=== PATIENT | male | born 1945 | race Caucasian/White ===

== ENCOUNTER 2017-02-21 23:49 | Emergency (ER) | payer MEDICARE ==
[~2017-02-21] VITALS: Ht 177.8 cm; Wt 65.8 kg
[~2017-02-21 23:49] MED LIST: LITHIUM CARBON300 M1 PO; MS CONTIN30 MG PO; OXYCODONE5 MG PO; PERCOCET 325 MG1 TA2 PO; SEROQUEL XR300 MG PO
== END 2017-02-22 00:23 | disposition home or self-care (01) ==
LOC: ED 23:49
DX: S40.261A Insect bite (nonvenomous) of right shoulder, initial encounter (principal); F17.200 Nicotine dependence, unspecified, uncomplicated; Z90.49 Acquired absence of other specified parts of digestive tract; W57.XXXA Bitten or stung by nonvenomous insect and other nonvenomous arthropods, initial encounter; Y93.89 Activity, other specified; Y92.9 Unspecified place or not applicable; Y99.9 Unspecified external cause status

== ENCOUNTER → 2017-03-29 | Day surgery (SDC) | payer MEDICARE ==
[~2017-03-29] VITALS: Ht 177.8 cm; Wt 68.0 kg
--- NOTE | ~2017-03-29 | WILSON ---
[place], [place] CATARACT EXTRACTION NAME: FRANTZ OCHOA [facility] #: [id number] UNIT #: [id number] ROOM: DOCTOR: TIM CID MD DATE: 03/29/17 PREOPERATIVE DIAGNOSIS: Cataract, right eye. POSTOPERATIVE DIAGNOSIS: Cataract, right eye. OPERATION: Extracapsular cataract extraction by phacoemulsification with posterior chamber intraocular lens implantation, right eye. ANESTHESIA: Monitored standby. OPERATIVE FINDINGS AND PROCEDURE: 2% Xylocaine topical anesthetic gel was applied to the eye in the preop area. The patient was taken to the operating room and prepped and draped in the standard fashion for sterile intraocular surgery. A time out procedure was performed verifying correct patient, correct site and corrects lens with Adamaris Cid M.D. The operating microscope was swung into position and the lid speculum was inserted. Using a paracentesis blade, a paracentesis was made through clear cornea. Viscoelastic was used to fill the anterior chamber. Using a metal keratome a 2.4 mm self-sealing clear corneal cataract incision was made temporally at the limbus. Using a pre-bent 25 gauge cystotome needle, a standard continuous curvilinear capsulorrhexis was performed. The anterior capsule was removed with forceps. The lens nucleus was hydrodissected and phacoemulsified in the posterior chamber. Cortical material was removed with the irrigation aspiration hand piece and the posterior capsule was then polished with a curet under irrigation. The posterior chamber and capsular bag were filled with viscoelastic. A posterior chamber intraocular lens manufactured by: [employer], Model #[id number], and 12.0 diopters in strength was then inserted into the posterior chamber and within the capsular bag using the lens cartridge and injector system. Viscoelastic was removed using the irrigation aspiration handpiece. The anterior chamber was filled with balanced salt solution through the paracentesis. Both the paracentesis site and cataract incisions were hydrated with BSS and verified to be water-tight and self-sealing. Cefuroxime 1 mg/0.1 mL was injected into the anterior chamber through the paracentesis site. The incision checked to be water-tight using a Weck-farooq sponge. The integrity of the cataract wound and ocular tension were checked. Lid speculum and drapes were removed. One drop of Ocuflox was applied to the eye. The patient was transferred from the operating room to the recovery room in satisfactory condition. TIM BAUTISTA MD CM:OPRECORD:CATARACT EXTRACTION 1208 1208 TIM CID MD 03/30/17 1221 RICH ESTEVES MIS.R
[2017-03-29 12:00] VITALS: BP 144/68
[2017-03-29 13:17] VITALS: BP 144/80
[2017-03-29 13:32] VITALS: BP 146/74
[2017-03-29 13:47] VITALS: BP 146/74
== END | disposition home or self-care (01) ==
LOC: SDC 03-24 10:15
DX: H26.9 Unspecified cataract (principal); Z87.898 Personal history of other specified conditions; F17.210 Nicotine dependence, cigarettes, uncomplicated; Z90.49 Acquired absence of other specified parts of digestive tract; Z98.890 Other specified postprocedural states; Z80.9 Family history of malignant neoplasm, unspecified

== ENCOUNTER → 2017-05-03 | Day surgery (SDC) | payer MEDICARE ==
[~2017-05-03] VITALS: Ht 177.8 cm; Wt 68.0 kg
--- NOTE | ~2017-05-03 | O ---
[place], [place] O[facility]ATIVE [id number] #: [id number] ROOM: DOCTOR: TIM HERNANDEZ MD BIRTHDATE: [birth year] DOS: 05/03/2017 PREOPERATIVE DIAGNOSIS: Cataract, left eye. POSTOPERATIVE DIAGNOSIS: Cataract, left eye. OPERATION: Extracapsular cataract extraction by phacoemulsification with posterior chamber intraocular lens implantation, left eye. ANESTHESIA: Monitored standby. OPERATIVE FINDINGS AND PROCEDURE: 2% Xylocaine topical anesthetic gel was applied to the eye in the preop area. The patient was taken to the operating room and prepped and draped in the standard fashion for sterile intraocular surgery. A time out procedure was performed verifying correct patient, correct site and corrects lens with Adamaris Hernandez M.D. The operating microscope was swung into position and the lid speculum was inserted. Using a Lashanda paracentesis blade, a paracentesis was made through clear cornea. Viscoelastic was used to fill the anterior chamber. Using a metal keratome a 2.4 mm self-sealing clear corneal cataract incision was made temporally at the limbus. Using a pre-bent 25 gauge cystotome needle, a standard continuous curvilinear capsulorrhexis was performed. The anterior capsule was removed with forceps. The lens nucleus was hydrodissected and phacoemulsified in the posterior chamber. Cortical material was removed with the irrigation aspiration hand piece and the posterior capsule was then polished with a curet under irrigation. The posterior chamber and capsular bag were filled with viscoelastic. A posterior chamber intraocular lens manufactured by: [employer], Model #[id number], and 11.5 diopters in strength were then inserted into the posterior chamber and within the capsular bag using the lens cartridge and injector system. Viscoelastic was removed using the irrigation aspiration handpiece. The anterior chamber was filled with balanced salt solution through the paracentesis. Both the paracentesis site and cataract incisions were hydrated with BSS and verified to be water-tight and self-sealing. Cefuroxime 1 mg/0.1 mL was injected into the anterior chamber through the paracentesis site. The incision checked to be water-tight using a Weck-Jackie sponge. The integrity of the cataract wound and ocular tension were checked. Lid speculum and drapes were removed. The patient was transferred from the operating room to the recovery room in satisfactory condition. [place], [place] OPERATIVE NOTE NAME: FRANTZ OCHOA UNIT #: [id number] ROOM: DOCTOR: TIM HERNANDEZ MD BIRTHDATE: [birth year] TIM HERNANDEZ MD CM:OPRECORD:OPERATIVE NOTE 1319 1408 TIM HERNANDEZ MD 05/03/17 1409 interface
[2017-05-03 11:50] VITALS: BP 102/69
[2017-05-03 13:16] VITALS: BP 117/73
[2017-05-03 13:31] VITALS: BP 117/73
[2017-05-03 13:47] VITALS: BP 121/72
== END | disposition home or self-care (01) ==
LOC: SDC 04-28 14:00
DX: H26.9 Unspecified cataract (principal); M19.90 Unspecified osteoarthritis, unspecified site; Z90.49 Acquired absence of other specified parts of digestive tract; Z98.890 Other specified postprocedural states; Z80.9 Family history of malignant neoplasm, unspecified; F17.210 Nicotine dependence, cigarettes, uncomplicated

== ENCOUNTER 2017-05-13 19:27 | Emergency (ER) | payer MEDICARE ==
[~2017-05-13] VITALS: Ht 177.8 cm; Wt 65.8 kg
--- NOTE | ~2017-05-13 | EKG ---
[place], [place] ELECTROCARDIOGRAM REPORT NAME: FRANTZ OCHOA UNIT #: [id number] ROOM: DOCTOR: RYAN VILLEGAS MD BIRTHDATE: [birth year] DOS: 05/13/2017 TIME: 2002 hours. Normal sinus rhythm at 86 beats per minute. The tracing is normal. No previous tracing is available for comparison. RYAN VILLEGAS MD CM:EKGRPT:ELECTROCARDIOGRAM REPORT 20 RYAN VILLEGAS MD
[2017-05-13] MEDS ORDERED: KEFLEX500 M1 PO (19:44)
[2017-05-13] MEDS ORDERED: NAPROSYN500 MG PO (19:44)
== END 2017-05-13 21:35 | disposition home or self-care (01) ==
LOC: ED 19:27
DX: S46.212A Strain of muscle, fascia and tendon of other parts of biceps, left arm, initial encounter (principal); M25.512 Pain in left shoulder; R03.0 Elevated blood-pressure reading, without diagnosis of hypertension; M79.644 Pain in right finger(s); F17.200 Nicotine dependence, unspecified, uncomplicated; X58.XXXA Exposure to other specified factors, initial encounter; Y93.89 Activity, other specified; Y92.89 Other specified places as the place of occurrence of the external cause; Y99.8 Other external cause status

== ENCOUNTER → 2017-10-17 | Outpatient (CLI) | payer OTHER ==
[~2017-10-17] MED LIST changes: +KEFLEX500 M1 PO; +NAPROSYN500 MG PO
== END ==
LOC: US 10-16 07:30
DX: Z13.6 Encounter for screening for cardiovascular disorders (principal)

== ENCOUNTER 2018-01-10 13:59 | Emergency (ER) | payer OTHER, MEDICARE ==
[~2018-01-10] VITALS: Ht 177.8 cm; Wt 70.3 kg
[2018-01-10] MEDS ORDERED: ZITHROMAX250 MG PO (15:36)
== END 2018-01-10 15:44 | disposition home or self-care (01) ==
LOC: ED 13:59
DX: J40 Bronchitis, not specified as acute or chronic (principal); F17.200 Nicotine dependence, unspecified, uncomplicated

== ENCOUNTER 2018-06-09 21:58 | Inpatient (IN) | payer OTHER, MEDICARE ==
[~2018-06-09] VITALS: Ht 177.8 cm; Wt 67.2 kg
--- NOTE | ~2018-06-09 | CON ---
[place], [place] REPORT OF CONSULTATION NAME: FRANTZ OCHOA UNIT #: [id number] ROOM: [place] [address] DOCTOR: MANAV TRAVIS,LESTER BIRTHDATE: [birth year] DOS: ADDENDUM CHIEF COMPLAINT: "I have been on a good whisky binge for 3 weeks." LESTER EM MD CM:CONSTR:REPORT OF CONSULTATION 1000 07/05/18 2240 interface
--- NOTE | ~2018-06-09 | CON ---
[place], [place] REPORT OF CONSULTATION NAME: FRANTZ OCHOA UNIT #: [id number] ROOM: [place] [address] DOCTOR: LESTER EM MD BIRTHDATE: [birth year] DOS: 06/10/2018 CHIEF COMPLAINT: "I have been on a good whisky binge for 3 weeks." HISTORY OF PRESENT ILLNESS: This is a 72-year-old white male admitted to ICU after presenting to the Emergency Room complaining of significant alcohol abuse and depression. The patient reports that he has been drinking hard liquor for the last 3 weeks nonstop, oftentimes waking up at 2 or 3 in the morning to down several glasses of whisky. The patient reports ongoing depression for many years and has seen the [place] psychiatrist for some time. Most recently, he remembers being prescribed Seroquel at bedtime, but states that the dose was too high for him. During this period of time, he has noted multiple neurovegetative symptoms that includes poor sleep with difficulty falling asleep, sleep continuity disturbance, special education tutor awakening, anergia, anhedonia, hopeless, helpless feelings, crying spells and inability to cope. He also has an extremely poor appetite and has lost over 10 pounds in the last 6 months. Today, he said he has not eaten for 6 days and the first meal he had was the meal he had in ICU. He is open to making medication changes. MENTAL STATUS: He is alert and oriented. Mood does seem to be overwhelmingly depressed. Affect is flat, blunted and constricted. He denies suicidal thoughts currently. There is no manny, hypomania or psychosis. Memory for the most part is intact. DIAGNOSIS: Major depression, recurrent, severe and alcohol dependence. PLAN: I will start him on Remeron 15 mg at bedtime along with low-dose Seroquel 25 mg. I did give him the option for further stabilization on the Behavioral Health Unit if he has chose to do so. If not, he may return home with scripts for these medications. LESTER EM MD CM:CONSTR:REPORT OF CONSULTATION 0959 07/05/18 9350 interface
--- NOTE | ~2018-06-09 | EKG ---
[place], [place] ELECTROCARDIOGRAM REPORT NAME: FRANTZ OCHOA UNIT #: [id number] ROOM: [place] [address] DOCTOR: SHANICE DRAFT REPORT BIRTHDATE: [birth year] [facility] Test Date: 2018-06-11 Test Time: 07:18:46 Pat Name: FRANTZ OCHOA Department: Room: [place] [address] Gender: M Digital Director: RUBEN : 1945 Requested By: EMILY BHANDARI Order Number: [id number] Reading MD: Ashly Linares MD Measurements Intervals [place] Rate: 145 P: [place]: QRS: 7 QRSD: 90 T: 129 QT: 312 QTc: 485 Interpretive Statements Atrial fibrillation Repolarization abnormality, prob rate related No previous ECG available for comparison Electronically Signed On 06-11-2018 9:36:59 PDT by Ashly Linares MD CM:EKGRPT:ELECTROCARDIOGRAM REPORT EMILY KNAPP DRAFT REPORT EMILY BHANDARI DO
[~2018-06-09 21:58] MED LIST changes: +ZITHROMAX250 MG PO
[2018-06-09 22:03] VITALS: BP 153/92
[2018-06-09 22:47] LABS: BASO % 0.3 % (0.0-1.0); EOS # 0.1 10*3/uL (0.0-0.4); EOS % 1.4 % (1.0-4.0); HEMOGLOBIN 15.2 g/dl (14.0-18.0); LYMPH # 2.3 10*3/uL (1.3-4.4); LYMPH % 38.7 % (27.0-41.0); MEAN CELL VOLUME 87.7 fl (80.0-94.0); MEAN CORPUSCULAR HGB 31.7 pg (27.0-31.0); MEAN CORPUSCULAR HGB CONC 36.2 g/dl (33.0-37.0); MEAN PLATELET VOLUME 8.8 fl (9.6-12.3); MONO # 0.3 10*3/uL (0.1-1.0); MONO % 5.1 % (3.0-9.0); NEUT # 3.2 10*3/uL (2.3-7.9); NEUT % 53.6 % (47.0-73.0); PLATELET COUNT AUTOMATED 206 10*3/uL (130-400); RED BLOOD COUNT 4.79 10*6/uL (4.50-5.90); RED CELL DISTRI WIDTH 13.5 % (0-14.5); WHITE BLOOD COUNT 5.9 10*3/uL (4.8-10.8)
[2018-06-09 22:58] LABS: BUN 18 mg/dl (7-24); CHLORIDE 104 mmol/L (98-107); CREATININE 0.58 mg/dL (0.70-1.30); POTASSIUM 3.5 mmol/L (3.5-5.1); SODIUM 141 mmol/L (136-145)
[2018-06-09 22:59] LABS: ACETAMINOPHEN (TYLENOL) < 2.0 ug/ml (10-30)
[2018-06-10] VITALS (7 sets, daily range): BP systolic 133–167; BP diastolic 81–96
[2018-06-10 00:02] LABS: BILIRUBIN NEGATIVE (NEGATIVE); BLOOD 1+ (NEGATIVE); CLARITY SL CLOUDY (CLEAR); COLOR YELLOW (YELLOW); GLUCOSE NEGATIVE (NEGATIVE); KETONE 1+ (NEGATIVE); LEUKO ESTERASE NEGATIVE (NEGATIVE); NITRITE NEGATIVE (NEGATIVE); UROBILINOGEN 0.2 E.U./dl (0.2-1.0)
[2018-06-10 00:16] LABS: URINE AMPHETAMINES < 1000 (1000ng/ml); URINE BARBITURATES < 200 (200ng/ml); URINE BENZODIAZEPINES > 200 (200ng/ml); URINE CANNABINOIDS (THC) < 50 (50ng/ml); URINE METHADONE < 300 (300ng/ml); URINE OPIATES < 300 (300ng/ml)
[2018-06-10 00:17] LABS: URINE COCAINE < 300 (300ng/ml); URINE PHENCYCLIDINE < 25 (25ng/ml)
[2018-06-10 01:39] LABS: BASO % 0.5 % (0.0-1.0); EOS # 0.1 10*3/uL (0.0-0.4); EOS % 0.9 % (1.0-4.0); HEMATOCRIT 39.7 % (42.0-52.0); HEMOGLOBIN 14.3 g/dl (14.0-18.0); LYMPH # 1.8 10*3/uL (1.3-4.4); LYMPH % 27.4 % (27.0-41.0); MEAN CELL VOLUME 88.8 fl (80.0-94.0); MEAN PLATELET VOLUME 8.6 fl (9.6-12.3); MONO # 0.3 10*3/uL (0.1-1.0); MONO % 4.4 % (3.0-9.0); NEUT # 4.3 10*3/uL (2.3-7.9); PLATELET COUNT AUTOMATED 178 10*3/uL (130-400); RED BLOOD COUNT 4.47 10*6/uL (4.50-5.90); RED CELL DISTRI WIDTH 13.5 % (0-14.5); WHITE BLOOD COUNT 6.5 10*3/uL (4.8-10.8)
[2018-06-10 01:53] LABS: ALBUMIN 3.2 gm/dl (3.1-4.5); ALKALINE PHOSPHATASE 52 U/L (45-117); BUN 18 mg/dl (7-24); CHLORIDE 105 mmol/L (98-107); LIPASE 88 U/L (73-393); POTASSIUM 3.7 mmol/L (3.5-5.1); SGOT/AST 59 IU/L (3-35); SGPT/ALT 44 U/L (12-78); SODIUM 144 mmol/L (136-145); TOTAL PROTEIN 5.8 gm/dL (6.4-8.2)
[2018-06-10 16:30] LABS: ALBUMIN 3.2 gm/dl (3.1-4.5); ALKALINE PHOSPHATASE 56 U/L (45-117); BUN 24 mg/dl (7-24); CHLORIDE 108 mmol/L (98-107); CREATININE 0.71 mg/dL (0.70-1.30); POTASSIUM 3.7 mmol/L (3.5-5.1); SGOT/AST 57 IU/L (3-35); SGPT/ALT 40 U/L (12-78); SODIUM 142 mmol/L (136-145); TOTAL PROTEIN 5.6 gm/dL (6.4-8.2)
[2018-06-11] VITALS: BP 149/85
[2018-06-11 04:00] VITALS: BP 132/78
[2018-06-11 08:00] VITALS: BP 124/82
[2018-06-11 12:00] VITALS: BP 90/59
[2018-06-11 16:00] VITALS: BP 124/73
== END 2018-06-11 18:37 | disposition left against medical advice (07) | DRG 309 ==
LOC: ED 21:58 → EDHOLD 23:49 → ICCU 23:49
PROVIDERS: Internal Medicine; Nurse Practitioner Family
DX: I48.0 Paroxysmal atrial fibrillation (principal); R45.851 Suicidal ideations; F33.2 Major depressive disorder, recurrent severe without psychotic features; R10.13 Epigastric pain; R74.0 Nonspecific elevation of levels of transaminase and lactic acid dehydrogenase [LDH]; J43.9 Emphysema, unspecified; F11.10 Opioid abuse, uncomplicated; Z60.2 Problems related to living alone; H54.61 Unqualified visual loss, right eye, normal vision left eye; Z96.649 Presence of unspecified artificial hip joint; R00.0 Tachycardia, unspecified; Z53.21 Procedure and treatment not carried out due to patient leaving prior to being seen by health care provider; F10.220 Alcohol dependence with intoxication, uncomplicated; G89.29 Other chronic pain; M25.552 Pain in left hip; Z79.899 Other long term (current) drug therapy; Z90.49 Acquired absence of other specified parts of digestive tract; Z90.89 Acquired absence of other organs; Z98.42 Cataract extraction status, left eye; Z98.41 Cataract extraction status, right eye; Z81.8 Family history of other mental and behavioral disorders; Z80.8 Family history of malignant neoplasm of other organs or systems; Z87.891 Personal history of nicotine dependence; Z82.3 Family history of stroke; Z86.73 Personal history of transient ischemic attack (TIA), and cerebral infarction without residual deficits

== ENCOUNTER 2019-08-05 04:48 | Emergency (ER) | payer MEDICARE ==
[~2019-08-05] VITALS: Ht 177.8 cm; Wt 70.3 kg
[2019-08-05 05:34] LABS: BASO % 0.4 % (0.0-1.0); EOS # 0.1 10*3/uL (0.0-0.4); EOS % 1.4 % (1.0-4.0); HEMATOCRIT 35.9 % (42.0-52.0); HEMOGLOBIN 12.4 g/dl (14.0-18.0); LYMPH # 1.2 10*3/uL (1.3-4.4); LYMPH % 23.2 % (27.0-41.0); MEAN CELL VOLUME 91.3 fl (80.0-94.0); MEAN CORPUSCULAR HGB 31.6 pg (27.0-31.0); MEAN CORPUSCULAR HGB CONC 34.5 g/dl (33.0-37.0); MEAN PLATELET VOLUME 9.5 fl (9.6-12.3); MONO # 0.6 10*3/uL (0.1-1.0); MONO % 12.4 % (3.0-9.0); NEUT % 60.4 % (47.0-73.0); PLATELET COUNT AUTOMATED 161 10*3/uL (130-400); RED BLOOD COUNT 3.93 10*6/uL (4.50-5.90); RED CELL DISTRI WIDTH 13.5 % (0-14.5)
[2019-08-05 05:48] LABS: ALBUMIN 3.2 gm/dl (3.1-4.5); ALKALINE PHOSPHATASE 99 U/L (45-117); BUN 23 mg/dl (7-24); CHLORIDE 108 mmol/L (98-107); CREATININE 0.71 mg/dL (0.70-1.30); POTASSIUM 3.8 mmol/L (3.5-5.1); SGOT/AST 23 IU/L (3-35); SGPT/ALT 28 U/L (12-78); SODIUM 139 mmol/L (136-145); TOTAL PROTEIN 6.5 gm/dL (6.4-8.2)
[2019-08-05] MEDS ORDERED: NORCO 5-325 TA1 EACH PO (08:15)
[2019-08-05] MEDS ORDERED: CLINDAMYCIN HC300 MG PO (08:15)
== END 2019-08-05 08:22 | disposition home or self-care (01) ==
LOC: ED 04:48
PROVIDERS: Emergency Medicine
DX: K04.7 Periapical abscess without sinus (principal); I48.91 Unspecified atrial fibrillation; Z87.891 Personal history of nicotine dependence

== ENCOUNTER 2020-05-28 02:32 | Inpatient (IN) | payer MEDICARE, OTHER ==
[~2020-05-28] VITALS: Ht 167.6 cm; Wt 67.1 kg
[~2020-05-28 02:32] MED LIST changes: +CLINDAMYCIN HC300 MG PO; +NORCO 5-325 TA1 EACH PO
[2020-05-28 02:57] VITALS: BP 134/66
--- NOTE | 2020-05-28 02:57 | NUR ---
FRANTZ OCHOA a 74 year old M admitted via wheel chair from the ADMITTING as a emergency 72 hr. hold admission. Arrived on unit at 0257. ALLERGIES: NKA. Vital signs are: 97.1-72-20 134/66. The client signed the following forms with stated understanding: Authorization For The Release of Medical Information, Clothing List, Consent to Voluntary Admission and Hospitalization, Consent and Release Forms/Receipt of Rights, Acknowledgement of Advance Directive Information, Behavioral Health Consent Form, and Informed Consent of Medications. Admitted under the services of Dr. MANAV TRAVIS,[facility]. A search was conducted and hazardous articles were removed. Client was oriented to the unit. ODILIA BRADFORD PATIENT CAME FROM HOME TO [facility]. PATIENT WITH TWO LARGE SCABS TO RIGHT LOWER EXTREMITY AND SCATTERED SMALL SCABS TO BILATERAL LOWER EXTREMITIES. PATIENT WITH SHEERING TO RIGHT INNER PINKY TOE. PATIENT REFUSED PHOTOS ON ADMISSION. PATIENT UNABLE TO PARTICIPATE IN ADMISSION SCREENINGS ON ADMISSION.
[2020-05-28] MEDS ORDERED: AMBIEN CR6.25 MG PO (03:00)
[2020-05-28] MEDS ORDERED: ZYPREXA5 M1 PO (03:01)
--- NOTE | 2020-05-28 03:11 | NUR ---
DR REARDON NOTIFIED OF ADMISSION
--- NOTE | 2020-05-28 05:37 | NUR ---
DR CAST ON UNIT TO SEE PATIENT
--- NOTE | 2020-05-28 06:26 | NUR ---
PATIENT SLEPT 3-4 HOURS OF UNINTERRUPTED SLEEP THROUGHOUT SHIFT. Q 15 MINUTE CHECKS MAINTAINED. 24 HR chart check completed.
[2020-05-28 06:55] VITALS: BP 134/66
--- NOTE | 2020-05-28 07:30 | NUR ---
SPACECRAFT SYSTEMS ENGINEER ALERTS THIS RN PT IS ASKING WHAT THE LAB WORK IS FOR BEFORE HE CONSENTS TO GETTING BLOOD DRAWN. THIS RN AND 2ND RN TO PT'S ROOM TO EXPLAIN ADMISSION LABS. PT VERY ANGRY/IRRITABLE AT THIS TIME, SPEAKING OVER STAFF'S ATTEMPTS TO PROVIDE EXPLANATIONS. PT STATES "YEAH, RIGHT. IT'S ALL ABOUT PADDING THE BILL. YOU KNOW THEY CHARGED ME $400 FOR ALCOHOL IN THE ER AND $469 FOR ONE TYLENOL TABLET. ALL YOU'RE DOING IS PADDING THE BILL". UNABLE TO REASON WITH PT AT THIS TIME. LABS REFUSED BY PT.
[2020-05-28 07:43] VITALS: BP 134/66
--- NOTE | 2020-05-28 08:15 | NUR ---
PT CONSENTED TO LAB DRAW AT THIS TIME. LABS OBTAINED.
--- NOTE | 2020-05-28 09:00 | NUR ---
Treatment Plan meeting was held this a.m. with Dr. Mccray, RN, AT, SAND MILL OPERATOR CORE SAND-S and Wrecking Crane Engine Operator. Plan for discharge Monday. Pt. will return home.
[2020-05-28 09:02] LABS: BASO % 0.4 % (0.0-1.0); EOS # 0.1 10*3/uL (0.0-0.4); EOS % 1.9 % (1.0-4.0); HEMATOCRIT 39.2 % (42.0-52.0); LYMPH # 1.7 10*3/uL (1.3-4.4); MEAN CORPUSCULAR HGB 30.2 pg (27.0-31.0); MEAN CORPUSCULAR HGB CONC 33.2 g/dl (33.0-37.0); MONO # 0.7 10*3/uL (0.1-1.0); MONO % 15.5 % (3.0-9.0); NEUT # 2.1 10*3/uL (2.3-7.9); NEUT % 45.1 % (47.0-73.0); PLATELET COUNT AUTOMATED 237 10*3/uL (130-400); RED BLOOD COUNT 4.31 10*6/uL (4.50-5.90); RED CELL DISTRI WIDTH 14.2 % (0-14.5); WHITE BLOOD COUNT 4.7 10*3/uL (4.8-10.8)
[2020-05-28 09:13] LABS: ALBUMIN 3.6 gm/dl (3.1-4.5); BUN 19 mg/dl (7-24); CHLORIDE 111 mmol/L (98-107); CHOLESTEROL 165 mg/dL (<200); CREATININE 1.19 mg/dL (0.70-1.30); HDL CHOLESTEROL 67 mg/dl (40-60); LDL CHOLESTEROL 83 mg/dL (9-159); POTASSIUM 3.2 mmol/L (3.5-5.1); SGOT/AST 23 IU/L (3-35); SGPT/ALT 32 U/L (12-78); SODIUM 144 mmol/L (136-145); TOTAL PROTEIN 6.7 gm/dL (6.4-8.2); TRIGLYCERIDES 77 mg/dl (<150); VLDL CHOLESTEROL 15 mg/dL (6-40)
[2020-05-28 09:20] LABS: ALKALINE PHOSPHATASE 81 U/L (45-117)
[2020-05-28 10:16] LABS: VITAMIN D, 25-HYDROXY 21.8 ng/mL (30-100)
--- NOTE | 2020-05-28 10:45 | NUR ---
CALL PLACED TO TO MAKE AWARE OF LOW POTASSIUM LEVEL, 3.4. VERBAL ORDER RECIEVED FOR KDUR 20MEQ NOW AND 2ND DOSE KDUR 20MEQ TO BE BE GIVEN TONIGHT WITH HS MEDS. READ BACK AND VERIFIED. WITNESSED BY 2ND RN FRANKY.DIEGO.
--- NOTE | 2020-05-28 11:30 | NUR ---
PT'S BED ALARM SOUNDING. THIS RN RESPONDS IMMEDIATELY. THIS RN ENTERS THE ROOM PT IS IN BATHROOM. PT STATES "I DON'T NEED THOSE DAMN ALARMS. I COULD RUN A 100 YARD DASH IN 15 SECONDS. I'M NOT GOING TO FALL". GAIT STEADY UPON ASSESSMENT. BED ALARM DISCONTINUED. PT STATES "I COULD DO WITHOUT THESE PULL-UPS. I NEED MY CLOTHES". PT CLOTHING HAD BEEN WASHED AND DRIED AND RETURNED TO PT AT THIS TIME. PT STATES HE WILL BE CONTACTING HIS LOCAL AREA NETWORK ADMINISTRATOR TO GET HIM OUT OF THIS HOSPITAL SOON POSSIBLE.
--- NOTE | 2020-05-28 11:35 | NUR ---
NOTIFIED [facility] [[email or web address]] DIRECTOR THAT PT WOULD LIKE TO SPEAK WITH A PT ADOVCATE RE: HIS BEING ADMITTED TO THE UNIT. PER DIRECTOR HE LEFT A VOICEMAIL FOR JOSE BROWN, PT ADVOCATE. 1147- PT ASKING TO CALL HIS STEAM METER READER NAZANIN GONZALES, PER DIRECTOR PT IS ALLOWED TO CALL, CALLED PLACED TO [facility] [employer] OFFICES, PT SPEAKING WITH A STAFF MEMBER IN THAT OFFICE AT THIS TIME. WILL CONTINUE TO MONITOR.
--- NOTE | 2020-05-28 12:00 | NUR ---
AM GROUP PT DID NOT ATTEND MORNING GROUP THERAPY. PT WAS IN BED RESTING.
--- NOTE | 2020-05-28 13:40 | NUR ---
SPOKE WITH DIRECTOR RE: PT ADVOCATE PER DIRECTOR HE HAS A CALL OUT AND WILL LET US KNOW WHEN HE HEARS BACK FROM THE ADOVOCATE.
--- NOTE | 2020-05-28 14:53 | NUR ---
SPOKE WITH DR HERNANDEZ RE: PT ALOCHOL USE AND DRINKING FOR 64 YEARS. PT STATED "SHELBY DRANK FOR 64 YEARS EVERYDAY." PT REFUSED TO ELABORATE ON AMOUNT CONSUMED EACH DAY. ADVISED THAT PT EXHIBITING TREMORS AND WAS MEDICATED WITH A PRN PO ATIVAN PER ORDERS. PER DR HERNANDEZ CONTINUE TO MONITOR AND IF IT GETS WORSE, CALL. [phone] DR GARCIA CALLED FOR UPDATE ON PT, UPDATE PROVIDED. PER DR GARCIA HE WILL START PT ON AN ATIVAN TAPER DOSE. NO FURTHER ORDERS AT THIS TIME.
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
--- NOTE | 2020-05-28 15:31 | NUR ---
Met with pt after pt saw Dr Mccray. Pt was irritable and demanding to go home. Attempted to explain 72 hr emergency hold and that Dr Mccray as well as all [facility] staff are wanting to work with pt as a team. Pt stated, "I appreciate you talking to me but I want to see the patient advocate right now." Left pt and informed charge histotechnologist of pt's request.
--- NOTE | 2020-05-28 15:35 | NUR ---
Met with pt this afternoon at his request. Pt was irritated but remained calm with this filing writer. Pt retold his earlier story of the men in the [facility]. Pt then stated, "I gotta get out of here today. I got to get home. Things are happening." Explained to pt that this would not be happening today. Pt escalated briefly and then calmed. Pt then asked to speak to the patient advocate and the hall porter. Explained to pt that this filing writer would inform RN of this. Discussed pt's requests and pt's mood with RN and land use planner. Calls were made in an attempt to locate patient advocate. Jamil Kevin RN, Director of [facility], currently meeting with pt.
--- NOTE | 2020-05-28 15:40 | NUR ---
PM GROUP PT WAS STANDING IN THE HALLWAY IN FRONT OF THE NURSES STATION AT THE START OF GROUP. PT WAS VERY AGITATED AND ARGUING WITH THE NURSE BEHIND THE DESK. PT WAS NOT INVITED INTO GROUP THERAPY DUE TO DISRUPTION TO THE GROUP MILIEU
--- NOTE | 2020-05-28 15:52 | NUR ---
[facility] , PER DIRECTOR PT IS ALLOWED TO MAKE THE CALL. SPOKE WITH DISPATCH, SHE STATED SHE WILL SEE IF THE OFFICER IS WORKING AND HAVE HIM RETURN THE CALL.
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
--- NOTE | 2020-05-28 16:08 | NUR ---
[facility] RETURNED CALL AND ADVISED THAT THE OFFICER THAT PINK SLIPPED THE PT IS OFF TODAY AND THE PT WAS PINK SLIPPED DUE TO HAVING HALLUCINATIONS OF SEEING 100S OF SOLIDERS IN HIS YARD TAKING OVER. PER THE OFFICER THEY FELT THAT THEY HAD NO OTHER CHOICE BUT TO PINK SLIP HIM BC HE WOULD NOT COME WILLINGLY AT THIS TIME. PER OFFICER IF THE PT STILL NEEDS TO SPEAK TO THAT OFFICER THAT WROTE THE PINK SLIP HE CAN CALL BACK TOMORROW.
--- NOTE | 2020-05-28 16:58 | NUR ---
PT COMES TO DINING ROOM FOR DINNER, STATES TO RN "YOU GIRLS OUGHT TO BE KIMI YOU'RE HERE IN THE HOSPITAL NOW WHEN I'M HERE". PT SMILES AND GOES ON TO STATE "BECAUSE WHEN I GET OUT OF HERE, ALL HELL IS GOING TO BREAK LOOSE. OH YEAH, I'LL BE SUING THIS PLACE BIG TIME BABY. THEY REALLY MESSED UP KEEPING ME HERE". PT SITTING DOWN EATING CALMLY AT THIS TIME.
--- NOTE | 2020-05-28 18:21 | NUR ---
UNABLE TO OBTAIN COVID NASAL SWAB THIS DATE D/T PT AGITATION AND PARANOIA.
[2020-05-28 20:00] VITALS: BP 158/91
--- NOTE | 2020-05-28 21:00 | NUR ---
Patient alert and oriented x4. Mood labile and anxious. Patient pacing hallway and looking into all the rooms especially other patients' rooms. Redirected patient about not looking into other patients' rooms. Patient said " I need to switch rooms. I can't sleep in a room with windows." Patient refused HS medications. Multiple attempts of redirecting ineffective. Patient continues to pace hallway and looking into rooms. Security making rounds and attempting to talk with patient. Will continue to monitor moods/behaviors at this time.
--- NOTE | 2020-05-28 21:19 | NUR ---
Patient continues to pace hallway,looking into rooms and increasing anxiety. Multiple attempts of redirection ineffective. All non-pharmacological interventions such as shutting blinds in patient's room and also in both quiet rooms but unsuccessful due to patient's paranoia. Medicated with Geodon IM prn as per doctor's order for increased agitation/anxiety. Will monitor moods/behaviors.
--- NOTE | 2020-05-29 05:50 | NUR ---
Patient slept approx. 3 hours of interrupted sleep throughout shift. Q 15 minute safety checks continued and maintained.
[2020-05-29 07:42] VITALS: BP 148/84
--- NOTE | 2020-05-29 08:37 | NUR ---
SPOKE WITH DR LOVELACE, RE: DC TODAY AROUND 10AM. PER HE WILL NOTIFY DR GARCIA.
[2020-05-29] MEDS ORDERED: MIRTAZAPINE15 M2 PO (08:42)
[2020-05-29] MEDS ORDERED: OLANZAPINE5 MG PO (08:42)
[2020-05-29] MEDS ORDERED: VITAMIN D3125 MC1 PO (08:42)
--- NOTE | 2020-05-29 09:00 | NUR ---
Treatment Plan meeting was held this a.m. with XAVIER Caro, RN, AT, JESSI-S and Fish Cake Maker. Plan for discharge today. Pt. is to return home. Pt. is connected with the [facility]. Will attempt to reach out to [place] to Arrange Follow up appointments.
--- NOTE | 2020-05-29 09:04 | NUR ---
DR GARCIA ON UNIT TO ASSESS PT; UPDATE PROVIDED TO
--- NOTE | 2020-05-29 09:05 | NUR ---
REFUSED ASSESSMENT BY DR GARCIA.
--- NOTE | 2020-05-29 09:17 | NUR ---
PATIENT DISCHARGED TO HOME. PATIENT ESCORTED OFF THE FLOOR BY [facility]HW AND SECURITY. PATIENT IS WALKING TWO BLOCKS TO HIS BROTHERS HOUSE. PATIENT IS ALERT AND ORIENTED, DENIES HALLUCINATIONS, DENIES DELUSIONS, DENIES SUICIDAL IDEATION, DENIES HOMICIDAL IDEATION. PATIENT IS AMBULATORY AND CONTINENT. PATIENT LEFT FLOOR WITH BELONGINGS.
--- NOTE | 2020-05-29 09:48 | NUR ---
Patient discharged to home. Pt to follow-up with the [facility] in [place] per his choice. While at [facility], pt did not participate in programming. Pt denied the need for his admittance.
== END 2020-05-29 09:17 | disposition home or self-care (01) | DRG 882 ==
LOC: 3N 02:32
PROVIDERS: ADMIT Psychiatry & Neurology Psychiatry; ATTEND Psychiatry & Neurology Psychiatry
DX: F43.10 Post-traumatic stress disorder, unspecified (principal); N17.0 Acute kidney failure with tubular necrosis; E72.20 Disorder of urea cycle metabolism, unspecified; R45.851 Suicidal ideations; F60.0 Paranoid personality disorder; R44.1 Visual hallucinations; F15.10 Other stimulant abuse, uncomplicated; F32.9 Major depressive disorder, single episode, unspecified; J43.9 Emphysema, unspecified; Z96.649 Presence of unspecified artificial hip joint; F11.10 Opioid abuse, uncomplicated; E87.8 Other disorders of electrolyte and fluid balance, not elsewhere classified; R73.9 Hyperglycemia, unspecified; D64.9 Anemia, unspecified; F13.10 Sedative, hypnotic or anxiolytic abuse, uncomplicated; E55.9 Vitamin D deficiency, unspecified; Z87.891 Personal history of nicotine dependence; Z82.3 Family history of stroke; Z80.0 Family history of malignant neoplasm of digestive organs; Z79.899 Other long term (current) drug therapy

== ENCOUNTER 2022-04-28 06:25 | Emergency (ER) | payer OTHER ==
[~2022-04-28] VITALS: Ht 172.7 cm; Wt 63.5 kg
[~2022-04-28 06:25] MED LIST changes: +AMBIEN CR6.25 MG PO; +AUGMENTIN 875875 MG PO; +CLONAZEPAM0.5 M2 PO; +CLONAZEPAM1 MG PO; +MIRTAZAPINE15 M2 PO; +OLANZAPINE5 MG PO; +VITAMIN D3125 MC1 PO; +ZYPREXA5 M1 PO
[2022-04-28 06:55] LABS: BASO % 0.2 % (0.0-1.0); EOS % 0.7 % (1.0-4.0); HEMATOCRIT 37.8 % (42.0-52.0); LYMPH # 1.1 10*3/uL (1.3-4.4); LYMPH % 25.1 % (27.0-41.0); MEAN CELL VOLUME 88.7 fl (80.0-94.0); MEAN CORPUSCULAR HGB 30.8 pg (27.0-31.0); MEAN CORPUSCULAR HGB CONC 34.7 g/dl (33.0-37.0); MEAN PLATELET VOLUME 9.6 fl (9.6-12.3); MONO # 0.6 10*3/uL (0.1-1.0); MONO % 14.2 % (3.0-9.0); NEUT # 2.5 10*3/uL (2.3-7.9); NEUT % 58.6 % (47.0-73.0); PLATELET COUNT AUTOMATED 236 10*3/uL (130-400); RED BLOOD COUNT 4.26 10*6/uL (4.50-5.90); RED CELL DISTRI WIDTH 13.7 % (0-14.5); WHITE BLOOD COUNT 4.2 10*3/uL (4.8-10.8)
[2022-04-28 07:12] LABS: ALKALINE PHOSPHATASE 50 U/L (45-117); BUN 22 mg/dl (7-24); CHLORIDE 109 mmol/L (98-107); CREATININE 0.85 mg/dL (0.70-1.30); POTASSIUM 3.8 mmol/L (3.5-5.1); SGOT/AST 23 IU/L (3-35); SGPT/ALT 20 U/L (12-78); SODIUM 139 mmol/L (136-145); TOTAL PROTEIN 6.5 gm/dL (6.4-8.2)
[2022-04-28 07:24] LABS: ACETAMINOPHEN (TYLENOL) < 5.0 ug/ml (10-30); ETHYL ALCOHOL < 3.0 mg/dl (<3)
[2022-04-28 07:34] LABS: BILIRUBIN Negative (Negative); BLOOD Negative (Negative); CLARITY Clear (Clear); COLOR Yellow (Yellow); GLUCOSE Negative (Negative); KETONE Trace (Negative); LEUKO ESTERASE Trace (Negative); NITRITE Negative (Negative); PH 6.5 (4.5-8.0)
[2022-04-28 07:42] LABS: URINE AMPHETAMINES > 1000 (1000ng/ml); URINE BARBITURATES < 200 (200ng/ml); URINE BENZODIAZEPINES > 200 (200ng/ml); URINE CANNABINOIDS (THC) < 50 (50ng/ml); URINE COCAINE < 300 (300ng/ml); URINE METHADONE < 300 (300ng/ml); URINE OPIATES < 300 (300ng/ml)
[2022-04-28 07:43] LABS: URINE PHENCYCLIDINE < 25 (25ng/ml)
[2022-04-28 07:52] LABS: MUCOUS TRACE; RBC 0-2 rbc/hpf (0-2)
[2022-04-28] MEDS ORDERED: VALIUM5 MG PO (08:51)
[2022-04-28] MEDS ORDERED: KLONOPIN0.5 MG PO (08:51)
[2022-04-28] MEDS ORDERED: KLONOPIN1 M1 PO (08:51)
[2022-04-28] MEDS ORDERED: REMERON SOLTAB30 MG PO (08:52)
== END 2022-04-28 19:51 | disposition short-term general hospital (02) ==
LOC: ED 06:25
PROVIDERS: Emergency Medicine
DX: F31.9 Bipolar disorder, unspecified (principal); Z20.822 Contact with and (suspected) exposure to COVID-19; R44.3 Hallucinations, unspecified; Z79.899 Other long term (current) drug therapy; Z90.89 Acquired absence of other organs; Z90.49 Acquired absence of other specified parts of digestive tract; F17.200 Nicotine dependence, unspecified, uncomplicated

== ENCOUNTER → 2022-09-20 | Day surgery (SDC) | payer OTHER ==
[~2022-09-20] VITALS: Ht 177.8 cm; Wt 65.8 kg
[~2022-09-20] MED LIST changes: +ACETAMINOPHEN-1 EAC1 PO; +HYDROCODONE-AC1 EAC2 PO; +KLONOPIN0.5 MG PO; +KLONOPIN1 M1 PO; +LOTRISONE 0.05%45 GM T; +OFLOXACIN 5 ML5 M3 OT; +REMERON SOLTAB30 MG PO; +VALIUM5 MG PO
[2022-09-20 09:50] VITALS: BP 151/73
[2022-09-20 11:55] VITALS: BP 120/68
[2022-09-20 12:10] VITALS: BP 131/68
[2022-09-20 12:25] VITALS: BP 122/71
== END | disposition home or self-care (01) ==
LOC: SDC 09-16 10:15
PROVIDERS: ATTEND Specialist
DX: H65.493 Other chronic nonsuppurative otitis media, bilateral (principal); F43.10 Post-traumatic stress disorder, unspecified

== ENCOUNTER → 2022-11-29 | Outpatient (CLI) | payer OTHER | END | disposition home or self-care (01) | LOC: CARD 11:48 | PROVIDERS: ATTEND Family Medicine | DX: I34.0 Nonrheumatic mitral (valve) insufficiency (principal); R55 Syncope and collapse ==

== ENCOUNTER 2023-06-24 13:56 | Emergency (ER) | payer OTHER ==
[~2023-06-24] VITALS: Wt 63.5 kg
[2023-06-24] MEDS ORDERED: PREDNISONE50 MG PO (15:29)
== END 2023-06-24 15:40 | disposition home or self-care (01) ==
LOC: ED 13:56
DX: T63.441A Toxic effect of venom of bees, accidental (unintentional), initial encounter (principal); F17.210 Nicotine dependence, cigarettes, uncomplicated; Z79.899 Other long term (current) drug therapy; Z79.2 Long term (current) use of antibiotics; Z90.49 Acquired absence of other specified parts of digestive tract; Z96.649 Presence of unspecified artificial hip joint; Z90.89 Acquired absence of other organs; X58.XXXA Exposure to other specified factors, initial encounter

== ENCOUNTER 2023-07-23 14:08 | Emergency (ER) | payer OTHER ==
[~2023-07-23] VITALS: Ht 177.8 cm
[~2023-07-23 14:08] MED LIST changes: +PREDNISONE50 MG PO
[2023-07-23 14:59] LABS: BASO % 0.4 % (0.0-1.0); EOS # 0.1 10*3/uL (0.0-0.4); EOS % 2.2 % (1.0-4.0); LYMPH # 0.9 10*3/uL (1.3-4.4); LYMPH % 17.7 % (27.0-41.0); MEAN CELL VOLUME 91.4 fl (80.0-94.0); MEAN CORPUSCULAR HGB 31.6 pg (27.0-31.0); MEAN CORPUSCULAR HGB CONC 34.5 g/dl (33.0-37.0); MEAN PLATELET VOLUME 9.3 fl (9.6-12.3); MONO # 0.5 10*3/uL (0.1-1.0); MONO % 10.9 % (3.0-9.0); NEUT # 3.4 10*3/uL (2.3-7.9); NEUT % 68.2 % (47.0-73.0); PLATELET COUNT AUTOMATED 196 10*3/uL (130-400); RED BLOOD COUNT 3.61 10*6/uL (4.50-5.90); RED CELL DISTRI WIDTH 13.6 % (0-14.5)
[2023-07-23 15:20] LABS: BUN 22 mg/dl (9-23); CHLORIDE 109 mmol/L (98-107); ETHYL ALCOHOL < 3.0 mg/dl (<3); POTASSIUM 3.5 mmol/L (3.4-5.1)
[2023-07-23 20:11] LABS: BILIRUBIN Negative (Negative); BLOOD Negative (Negative); CLARITY Clear (Clear); COLOR Yellow (Yellow); GLUCOSE Negative (Negative); KETONE 2+ (Negative); LEUKO ESTERASE Negative (Negative); NITRITE Negative (Negative); PH 5.5 (4.5-8.0); SPECIFIC GRAVITY 1.015 (1.001-1.030)
[2023-07-23 20:18] LABS: URINE AMPHETAMINES Positive (1000ng/ml); URINE BARBITURATES Negative (200ng/ml); URINE BENZODIAZEPINES Positive (200ng/ml); URINE CANNABINOIDS (THC) Negative (50ng/ml); URINE COCAINE Negative (300ng/ml); URINE METHADONE Negative (300ng/ml); URINE OPIATES Negative (300ng/ml); URINE PHENCYCLIDINE Negative (25ng/ml)
[2023-07-23 20:46] LABS: MUCOUS 1+
== END 2023-07-24 08:00 | disposition home or self-care (01) ==
LOC: ED 14:08
PROVIDERS: Physician Assistant Medical
DX: Z04.6 Encounter for general psychiatric examination, requested by authority (principal); F15.151 Other stimulant abuse with stimulant-induced psychotic disorder with hallucinations; F31.9 Bipolar disorder, unspecified; D64.9 Anemia, unspecified; R73.9 Hyperglycemia, unspecified; E80.6 Other disorders of bilirubin metabolism; Z90.49 Acquired absence of other specified parts of digestive tract; Z90.89 Acquired absence of other organs; Z98.890 Other specified postprocedural states; F17.200 Nicotine dependence, unspecified, uncomplicated; F10.10 Alcohol abuse, uncomplicated; Z79.899 Other long term (current) drug therapy; Z20.822 Contact with and (suspected) exposure to COVID-19